=== PATIENT | female | born 1940 | race Caucasian/White ===

== ENCOUNTER → 2021-07-07 | Outpatient (CLI) | payer MEDICARE, MEDICAID ==
[2021-07-07] VITALS (10 sets, daily range): BP systolic 122–162; BP diastolic 78–95; PULSE 65–83; TEMP 98.8
[~2021-07-07] VITALS: Ht 157.5 cm; Wt 71.5 kg
[~2021-07-07] MED LIST: CELEXA 20MG20 MG/TAB PO; NAMENDA 10MG TA10 MG PO; PROBIOTIC DIGE1 EACH PO; PROTONIX 40MG T40 MG PO; ZYRTEC 10MG10 MG PO
[2021-07-07 08:28] LABS: INR 1.2 (0.8-3.0); PROTHROMBIN TIME 13.1 SECONDS (9.7-12.8)
== END ==
LOC: COL.RAD 07-05 10:00
PROVIDERS: Family Medicine
DX: R16.0 Hepatomegaly, not elsewhere classified (principal)
CPT/HCPCS: 32106